=== PATIENT | male | born 1995 | race Caucasian/White ===

== ENCOUNTER 2019-04-03 11:39 | Emergency (ER) | payer OTHER, SELFPAY ==
[2019-04-03 11:40] VITALS: BP 124/66; PULSE 64; RESP 17; TEMP 36.2; O2SAT 98; BMI 21.5
--- NOTE | 2019-04-03 12:40 | RAD_ITS ---
STUDY: X-RAY - LEFT HAND REASON FOR EXAM: Injury with nail gun one day ago. TECHNIQUE: 3 view(s) of the hand. COMPARISON: None. FINDINGS: Normal radiocarpal articulation. Normal distal radioulnar joint. Normal visualized carpal bones. Normal carpal articulations Normal carpometacarpal articulation of the thumb. Normal second through fifth carpometacarpal joints. Normal metacarpi. Normal metacarpophalangeal joint of the thumb. Normal interphalangeal joint of the thumb. Normal proximal and distal phalanges of the thumb. Normal metacarpophalangeal joints of the second through fifth fingers. Normal proximal and distal interphalangeal joints of the second through fifth fingers. Normal phalanges of the second through fifth fingers. There is no demonstrated radiopaque foreign body. There is an ossicle adjacent to the ulnar styloid process. RAD/Hand Min 3 Views IMPRESSION: No demonstrated radiopaque foreign body or fracture. Electronically Signed: Otilio Murphy MD at 13:32 EDT Tel , Service support ,
--- NOTE | 2019-04-03 13:30 | ED.VIS.INJ ---
History of Present Illness Chief Complaint: Upper Extremity Injury Narrative: Patient presenting secondary to a injury to his left hand. Patient reports that he was using a nail gun and he accidentally nailed his hand to a board. The nail went between the metacarpals of his index finger and long digit. Patient reports that he was able to remove the nail in its entirety. Patient reports a mild to moderate amount of pain worse with movement. He does report some tingling in his long digit. He is up-to-date on his tetanus. He is not immunocompromised. Past Medical History - Allergies and Home Meds Allergies/Adverse Reactions: Allergies No Known Allergies Allergy (Verified 04/03/19 11:39) Primary Care Physician: Jake Corley MD [Primary Care Provider] - Past Medical History: None Smoking Status: Current every day smoker Review of Systems All systems negative except as indicated Musculoskeletal: Reports: Extremity Pain Physical Exam Vital Signs/Narrative: Vital Signs Temp Pulse Resp BP Pulse Ox 04/03/19 11:40 97.2 F L 64 17 124/66 H 98 General: Well nourished, Well developed Head: Normocephalic, Atraumatic Eyes: EOMI Neck: Full ROM Cardiovascular: Regular rate, Regular rhythm, - - 2+ radial pulses bilaterally symmetric Respiratory: No distress Skin: - - Examination the patient's left hand shows a through and through puncture wound between the metacarpals of the long digits and index finger. Normal range of motion of the fingers. Normal capillary refill. Normal sensation over all dermatomes. Normal two-point discrimination. Neurological: Alert, Oriented x3 Diagnostic/Tx/Re-eval - Medical Decision Making Patient presented secondary to a puncture wound to the left hand. Radiographs were obtained which showed no evidence of fracture. Patient is currently hemostatic. He is up-to-date on his tetanus. I discussed patient's case on the telephone with orthopedics, and they did recommend that the patient soak his hand to continue having the wound drain, to splint it in place, and to have the patient be discharged on antibiotics with outpatient follow-up. I gave the patient strict return instructions which he voiced understanding of and his own words. Patient was discharged in stable condition. Disposition: Home ED Disposition - Plan for ED Patient: Disposition: Home or Assisted Living Diagnosis: Puncture wound of hand Instructions: PUNCTURE WOUND, General Prescriptions: Cephalexin [Keflex] 500 mg PO Q6 #40 cap Prescription Printed Referrals: Marielena Nielsen DO [STAFF PHYSICIAN] - 2 Days for wound check Additional Instructions: Soak you hand in soapy water 3 times a day for 20 min at a time
== END 2019-04-03 14:46 | disposition home or self-care (01) ==
PROVIDERS: Emergency Provider Emergency Medicine; Family Provider Family Medicine; PCP Family Medicine
DX: S61.432A Puncture wound without foreign body of left hand, initial encounter (principal); W29.4XXA Contact with nail gun, initial encounter; Y93.89 Activity, other specified; F17.200 Nicotine dependence, unspecified, uncomplicated
CPT/HCPCS: 73130; 99283